=== PATIENT | female | born 1940 | race Caucasian/White ===

== ENCOUNTER 2023-10-01 06:20 | Day surgery (SDC) | payer MEDICARE ==
[2023-10-01] VITALS (11 sets, daily range): BP systolic 124–149; BP diastolic 61–93; PULSE 61–71; RESP 15–17
[~2023-10-01] VITALS: Ht 154.9 cm; Wt 68.0 kg
[~2023-10-01 06:20] MED LIST: ATOR10 PO; BACL5TAB PO; CARV25TA PO; CITA10TA89 PO; CLON0.1T PO; CLOP-31 PO; DAPA5TAB PO; ELUX100T PO; FAMO10TA39 PO; FLUT16H NASAL; FLUT1BLS3 IH; GABA-529 PO; GLIM1TAB18 PO; IRBE300T26 PO; LINA5TAB PO; MONT-39 PO; NIFE10 PO
[2023-10-01] MEDS: 0.9%NACL 1000ML 1,000 ML IV ONE (07:26)
[2023-10-01] MEDS ORDERED: PROPOFOL 10 MG/ML 20ML VIAL IV ONE ×2 (08:50)
== END 2023-10-01 10:10 | disposition home or self-care (01) ==
LOC: DAH 06:20 → ENDO 06:20
PROVIDERS: ATTEND Internal Medicine Gastroenterology
DX: R13.10 Dysphagia, unspecified (principal); K44.9 Diaphragmatic hernia without obstruction or gangrene; K22.2 Esophageal obstruction; R10.10 Upper abdominal pain, unspecified; K58.0 Irritable bowel syndrome with diarrhea; K21.9 Gastro-esophageal reflux disease without esophagitis; J44.9 Chronic obstructive pulmonary disease, unspecified; I10 Essential (primary) hypertension; F32.A Depression, unspecified; I25.119 Atherosclerotic heart disease of native coronary artery with unspecified angina pectoris; E78.5 Hyperlipidemia, unspecified; E11.43 Type 2 diabetes mellitus with diabetic autonomic (poly)neuropathy; K31.84 Gastroparesis; Z79.01 Long term (current) use of anticoagulants; Z79.899 Other long term (current) drug therapy; Z98.84 Bariatric surgery status; Z86.010 Personal history of colon polyps; Z90.89 Acquired absence of other organs; Z98.49 Cataract extraction status, unspecified eye; Z98.890 Other specified postprocedural states; Z88.6 Allergy status to analgesic agent; Z88.8 Allergy status to other drugs, medicaments and biological substances
CPT/HCPCS: 43235; 82948 ×2; J7030; J2704 ×2; A4620; A4215; A4223; A4222; A4221; A4663; A4606; J3490

== ENCOUNTER 2023-10-22 06:55 | Day surgery (SDC) | payer MEDICARE ==
[2023-10-22] VITALS (11 sets, daily range): BP systolic 109–166; BP diastolic 60–82; PULSE 62–69; RESP 11–20
[~2023-10-22] VITALS: Ht 154.9 cm; Wt 67.1 kg
[~2023-10-22 06:55] MED LIST changes: -GLIM1TAB18 PO; +GLIM1TAB56 PO
[2023-10-22] MEDS: 0.9%NACL 1000ML 1,000 ML IV ONE (08:42)
[2023-10-22] MEDS ORDERED: LIDOCAINE HCL 1% 20 ML VIAL ONE (10:44)
[2023-10-22] MEDS ORDERED: PROPOFOL 10 MG/ML 20ML VIAL IV ONE (10:44)
== END 2023-10-22 12:10 | disposition home or self-care (01) ==
LOC: ENDO 06:55 → DAH 06:55 → ENDO 12:10
PROVIDERS: ATTEND Internal Medicine Gastroenterology
DX: R13.10 Dysphagia, unspecified (principal); K29.50 Unspecified chronic gastritis without bleeding; K31.89 Other diseases of stomach and duodenum; E11.43 Type 2 diabetes mellitus with diabetic autonomic (poly)neuropathy; K31.84 Gastroparesis; K22.2 Esophageal obstruction; K44.9 Diaphragmatic hernia without obstruction or gangrene; K21.9 Gastro-esophageal reflux disease without esophagitis; R93.3 Abnormal findings on diagnostic imaging of other parts of digestive tract; K58.0 Irritable bowel syndrome with diarrhea; R10.10 Upper abdominal pain, unspecified; F32.A Depression, unspecified; I10 Essential (primary) hypertension; J44.9 Chronic obstructive pulmonary disease, unspecified; E78.5 Hyperlipidemia, unspecified; I25.10 Atherosclerotic heart disease of native coronary artery without angina pectoris; Z86.73 Personal history of transient ischemic attack (TIA), and cerebral infarction without residual deficits; Z86.010 Personal history of colon polyps; Z82.49 Family history of ischemic heart disease and other diseases of the circulatory system; Z83.3 Family history of diabetes mellitus; Z82.5 Family history of asthma and other chronic lower respiratory diseases; Z83.79 Family history of other diseases of the digestive system; Z82.3 Family history of stroke; Z80.8 Family history of malignant neoplasm of other organs or systems; Z88.1 Allergy status to other antibiotic agents; Z91.041 Radiographic dye allergy status; Z88.8 Allergy status to other drugs, medicaments and biological substances; Z88.5 Allergy status to narcotic agent; Z79.1 Long term (current) use of non-steroidal anti-inflammatories (NSAID); Z79.899 Other long term (current) drug therapy; Z98.49 Cataract extraction status, unspecified eye; Z98.890 Other specified postprocedural states
CPT/HCPCS: 43249; 82948 ×2; 43239; J7030; J2704; C1726; A4620; A4215 ×2; A4223; A4222; A4221; A4663; A4606; J3490